=== PATIENT | female | born 1995 | race Caucasian/White ===

== ENCOUNTER 2025-01-04 07:53 | Inpatient (IN) ==
[2025-01-04] MEDS ORDERED: LIDOCAINE 1% LOCAL 20 ML VIAL INFIL PRN (08:40)
[2025-01-04] MEDS ORDERED: OXYTOCIN 30 UNITS/NSS 30 UNITS/500 ML BAG IV PRN (08:40)
[2025-01-04] MEDS: BUTORPHANOL TARTRATE 1 MG/ML VIAL IV ONE (09:14)
[2025-01-04] MEDS: LACTATED RINGER'S 1,000 ML IV PRN (09:17)
[2025-01-04 09:26] LABS: Hematocrit (blood only) 41.3 % (37.0-47.0); Hemoglobin 13.3 g/dl (12.0-16.0); Mean Corpuscular Hemoglobin 26.4 pg (25.0-34.0); Mean Corpuscular Volume 82.1 fL (80.0-100.0); Platelet Count 206 K/uL (130-400); RDW Standard Deviation 55.4 fL (36.4-46.3); Red Blood Count 5.03 M/uL (4.20-5.40); White Blood Count 10.63 K/ul (4.8-10.8)
[2025-01-04] MEDS ORDERED: BUPIVACAINE 0.25% PF 30 ML VIAL EPI PRN (12:43)
[2025-01-04] MEDS ORDERED: NALOXONE HCL 1 MG in SODIUM CHLORIDE 0.9% 1,000 ML IV PRN ×2 (12:43→15:47)
[2025-01-04] MEDS ORDERED: ONDANSETRON INJ 2 MG/ML 2 ML VIAL IV PRN ×2 (12:43→15:47)
[2025-01-04] MEDS ORDERED: SODIUM CHLORIDE 0.9% PF INJ 10 ML VIAL EPI PRN (12:43)
[2025-01-04] MEDS ORDERED: LIDOCAINE 2% MPF LOCAL 5 ML VIAL EPI PRN (12:43)
[2025-01-04] MEDS ORDERED: fentANYL 2 MCG/ML BUPIVacaine 0.125%-NSS 100ML BAG EPI PRN (12:43)
[2025-01-04] MEDS ORDERED: NALBUPHINE HCL INJ 10 MG/ML AMP IV PRN ×2 (12:43→15:47)
[2025-01-04] MEDS ORDERED: NALOXONE HCL 0.4 MG/1 ML VIAL/CARP IV PRN ×2 (12:43→15:47)
[2025-01-04] MEDS ORDERED: diphenhydrAMINE 50 MG/ML VIAL IV PRN ×2 (12:43→15:47)
[2025-01-04] MEDS ORDERED: ROPIVACAINE 0.5% PF 5 MG/ML 20 ML VIAL EPI PRN (12:43)
--- NOTE | 2025-01-04 12:43 | Anesthesiology Consultation ---
Date of Service January 04, 2025 Assessment & Plan ASA ASA2 Proposed Anesthesia Anesthesia Type: Labor Epidural Risk / Benefits Reviewed With: PT / POA / Parent / Guardian, Accepts Plan and Informed Consent Obtained History Surgery Operation Date: 01/04/25 16:00 Proposed Procedures p Section in LD(Bilateral) - Rajesh Vargas MD Height/Weight Height: 5 ft 2 in Weight: 71.668 kg Allergies Allergy/AdvReac Type Severity Reaction Status Date / Time amoxicillin Allergy Intermediate hives Verified 12/17/24 22:20 erythromycin base Allergy Intermediate hives Verified 12/17/24 22:20 pineapple Allergy Mild throat Verified 12/17/24 22:20 gets itchy Medications Home Medications Medication Instructions Recorded Confirmed Last Taken vit no.95-ferrous 1 tab PO DAILY 12/02/24 01/04/25 12/29/24 fumarate 28 mg-folic acid 800 mcg tablet () Active Medications Generic Name Dose Route Start Last Admin Trade Name Freq PRN Reason Stop Dose Admin Lactated Ringer's 1,000 mls @ 125 mls/hr 01/04/25 08:40 01/04/25 15:01 Lr IV 01/06/25 08:39 100 mls/hr .Q8H PRN Administration L&D Protocol Protocol Exercise / Class Metabolic Activity II 4-5 Yardwork/Stairs/Walk up hill Past Anesthesia History No Hx of Anesthesia Complications and No Family Hx of Anesthesia Complications History of PONV No Hx of PONV and No Hx of Motion Sickness Social History Smoking Status: Never smoker Do You Dip or Chew Tobacco: No Hx Alcohol Use: No Hx Substance Use: No substance use type: does not use Review of Systems denies fever/cough/ colds/ chest pain/ SOB/ MARC denies MARC Physical Exam Vital Signs Last Vital Signs Temp 36.7 C 01/04/25 14:07 Pulse 131 H 01/04/25 15:29 Resp 20 01/04/25 14:07 BP 116/70 01/04/25 15:24 Pulse Ox 99 01/04/25 15:29 ENMT Mouth: no TMJ abnormality and no dentition abnormality Thyromental Distance: > or= 3.5 Finger Breadths Mallampati Class: II Neck neck extension not limited Respiratory normal respiratory effort; no respiratory distress Auscultation: lungs clear to auscultation bilaterally Cardiovascular Rate/Rhythm: regular rate and regular rhythm Neurologic moves all extremities Psychiatric Orientation: alert and oriented x 3 Testing Laboratory Results 01/04/25 08:58
[2025-01-04] MEDS: fentANYL 2 MCG/ML BUPIVacaine 0.125%-NSS 100ML BAG ONE (13:30)
[2025-01-04] MEDS: BUPIVACAINE 0.25% PF 30 ML VIAL ONE (13:35)
[2025-01-04] MEDS: LIDOCAINE 2%/EPINEPHRINE 1:200,000 20 ML PF ONE (13:35)
[2025-01-04] MEDS ORDERED: LIDOCAINE 2%/EPINEPHRINE 1:200,000 20 ML PF ONE (15:19)
[2025-01-04] MEDS: CITRIC ACID/SODIUM CITRATE 15 ML UDC ONE (15:25)
--- NOTE | 2025-01-04 15:31 | History & Physical Report ---
Date of Service January 04, 2025 Assessment & Plan (1) Non-reassuring heart rate or rhythm affecting management of mother: Admission and Anticipated Discharge Date Admission Date: January 04, 2025 History of Present Illness Chief Complaint: Nonreassuring heart rate tracing Intrauterine 38 weeks 6 days Primary Care Provider: Daniela Reddy MD Patient is a 29-year-old 2 para 1 she was admitted in active labor with a bloody show and 3 to 4 cm dilated cervix 100% effaced posterior vertex presentation. She has had an uneventful course. Her due date 01/12/2025. She is on no chronic pills or medications other than vitamins. She has been treated for anemia. Her last hemoglobin however was 13. Previous delivery 2019 a male 6 pounds 2 ounces spontaneous vaginal delivery at 35 weeks 5 days gestation after premature rupture membranes. Labor was 24 hours she pushed for 2 to 3 hours. was delivered in good shape. Present or labor started at 4 AM in the morning. She was admitted at about 8. Given a dose of Stadol she walked for a while. She then was given epidural anesthesia at about 4 to 5 cm with her membranes intact. Anesthesia she began to have some bradycardia late decelerations with loss of variability. We tried changing the position. We tried giving her IV fluids. We made sure her blood pressure was normal. Her tracing did improve some. But she had recurrent late long episodes of loss of variability. was called due to nonreassuring heart rate tracing. Allergies Allergy/AdvReac Type Severity Reaction Status Date / Time amoxicillin Allergy Intermediate hives Verified 12/17/24 22:20 erythromycin base Allergy Intermediate hives Verified 12/17/24 22:20 pineapple Allergy Mild throat Verified 12/17/24 22:20 gets itchy Home Medications Medication Instructions Recorded Confirmed Type vit no.95-ferrous 1 tab PO DAILY 12/02/24 01/04/25 History fumarate 28 mg-folic acid 800 mcg tablet () Past Med/Surg History Problem List (Updated 01/04/25 @ 15:22 by Rajesh Vargas MD) Non-reassuring heart rate or rhythm affecting management of mother Uterine contractions during Bilateral lower extremity edema Vasovagal near syncope NST (non-stress test) reactive on surveillance Chronic back pain (Chronic) Right lower quadrant pain (Acute) Social History Smoking Status: Never smoker Do You Dip or Chew Tobacco: No; Hx Alcohol Use: No Hx Substance Use: No Preferred Language: Syriac Communication Ability: Effective Order Filler Required: No Beliefs That Will Affect Care: None marital status: Current Living Situation: Family Current Living Situation Comment: 6 year old son Other Information That Helps Us Care for You: No Feels Safe at Home: Yes Safety Concerns: Feels Safe At This Time Assistive Devices: Contacts and Glasses Physical Exam Physical Exam: Well-developed well-nourished 29-year-old white female alert oriented x 3 cooperative in no no acute distress. The patient had oxygen running at the time of the exam. Heart had regular rhythm S1 and S2 were normal. Lungs are clear to auscultation percussion. Trachea was midline there was no cervical adenopathy. Abdomen is consistent with a term size fetus. No abnormal abdominal tenderness. No CVA tenderness. No calf tenderness. Pelvic exam revealed a vertex -2 station membranes intact 4 to 5 cm 90% effaced mid position Results & Data Results & Data Vital Signs (Past 12 Hours) Vital Signs Temp Pulse Resp BP Pulse Ox 01/04/25 15:14 136 H 100 01/04/25 15:13 123 H 116/66 01/04/25 15:09 97 H 100 01/04/25 15:04 111 H 100 01/04/25 14:59 104 H 100 01/04/25 14:54 118 H 100 01/04/25 14:49 100 01/04/25 14:49 113 H 01/04/25 14:49 92 H 106/59 L 01/04/25 14:44 84 100 01/04/25 14:39 119 H 100 01/04/25 14:34 93 H 181/138 H 100 01/04/25 14:33 108 H 79 L 01/04/25 14:29 101 H 98 01/04/25 14:24 73 100 01/04/25 14:19 111 H 100 01/04/25 14:14 72 99 01/04/25 14:10 50 L 106/51 L 01/04/25 14:09 51 L 100 01/04/25 14:07 20 01/04/25 14:07 36.7 C 20 01/04/25 14:04 92 H 100 01/04/25 14:02 82 106/60 01/04/25 13:59 88 97 01/04/25 13:57 103 H 83 L 01/04/25 13:54 97 H 96/61 L 92 01/04/25 13:53 253/151 H 01/04/25 13:50 109 H 82 L 01/04/25 13:49 70 99 01/04/25 13:45 151 H 171/117 H 01/04/25 13:44 98 H 100 01/04/25 13:39 109 H 96 01/04/25 13:36 99/62 L 01/04/25 13:34 111 H 97/54 L 99 01/04/25 13:33 110 H 95/59 L 01/04/25 13:30 88 114/62 01/04/25 13:29 78 100 01/04/25 13:28 87 119/63 01/04/25 13:26 90 106/72 01/04/25 13:24 79 114/75 95 01/04/25 13:23 75 116/74 01/04/25 13:19 79 99 01/04/25 13:14 72 100 01/04/25 13:09 86 100 01/04/25 13:04 90 100 01/04/25 08:25 68 116/83 01/04/25 08:20 36.9 C 18 Diagnostic Findings Nonreassuring heart rate tracing
[2025-01-04] MEDS ORDERED: cefOXitin SOD 1,000 MG VIAL ONE (15:34)
[2025-01-04] MEDS: cefOXitin 2,000 MG in DEXTROSE 5 % MINI-B 50 ML IV STA (15:35)
[2025-01-04] MEDS ORDERED: DEXAMETHASONE SOD INJ 4 MG/ML VIAL ONE (15:39)
[2025-01-04] MEDS ORDERED: OXYTOCIN 10 UNITS/ML VIAL ONE ×2 (15:39→15:42)
[2025-01-04] MEDS ORDERED: ONDANSETRON INJ 2 MG/ML 2 ML VIAL ONE (15:39)
[2025-01-04] MEDS ORDERED: LACTATED RINGER'S 500 ML IV PRN (15:47)
[2025-01-04] MEDS ORDERED: HYDROmorphone INJ 0.5 MG/0.5 ML SYR IV PRN (15:47)
[2025-01-04] MEDS ORDERED: MoRPHine SULFATE 2 MG/ML CARP IV PRN (15:47)
[2025-01-04] MEDS ORDERED: MoRPHine SULFATE PF 1 MG/ML 10 ML AMP/VIAL INT SPINAL ONE (15:47)
[2025-01-04] MEDS ORDERED: NALOXONE HCL 0.08 MG in SYRINGE 1.8 ML IV PRN (15:47)
[2025-01-04] MEDS ORDERED: PROMETHAZINE 6.25 MG/50.25 ML BAG IV PRN (15:47)
[2025-01-04] MEDS ORDERED: MoRPHine SULFATE PF 1 MG/ML 10 ML AMP/VIAL ONE (15:54)
[2025-01-04] MEDS ORDERED: PHENYLEPHRINE 100MCG/ML 5ML SYR ONE (15:58)
[2025-01-04] MEDS ORDERED: NO NARCOTICS OR SEDATIVES SCH (16:00)
[2025-01-04] MEDS ORDERED: DC INTRASPINAL MORPHINE SCH (16:00)
[2025-01-04] MEDS ORDERED: SODIUM CHLORIDE 0.9% 1,000 ML IV SCH (16:00)
[2025-01-04] MEDS ORDERED: OXYTOCIN 10 UNITS/ML 10ML VIAL IM ONE (16:12)
[2025-01-04 16:16] LABS: Base Excess Cord Arterial Bld -7.4 mEq/L (-9-1.8); CO2 Cord Arterial Blood 60 mmHg (39.1-73.5); HCO3 Cord Arterial Blood 22 mmol/L (19.7-28.5); Oxygen Sat Cord Arterial Blood < 60.0 % (<60); PO2 Cord Arterial Blood < 20 mmHg (4.1-31.7); pH Cord Arterial Blood 7.17 (7.1-7.38)
[2025-01-04 16:18] LABS: Base Excess Cord Venous Blood -5.5 mEq/L (-7.7-1.9); Cord Venous Blood PO2 < 20 mmHg (14.1-43.3); O2 Saturation Cord Venous Bld < 60.0 % (<68)
[2025-01-04] MEDS ORDERED: DIPHTHER/TETAN/PERTUS Vaccine (Tdap, Adol/Adult) 0.5mL IM ONE (16:39)
[2025-01-04] MEDS ORDERED: BENZOCAINE 20% SPRY 85 APPLN/85 GM CAN EXT PRN (16:39)
[2025-01-04] MEDS ORDERED: SENNA 8.6 MG TAB PO PRN (16:39)
[2025-01-04] MEDS ORDERED: CALCIUM CARBONATE 500 MG CHEWABLE TAB PO PRN (16:39)
[2025-01-04] MEDS ORDERED: MAGNESIUM HYDROXIDE SUSP 30 ML UDC PO PRN (16:39)
[2025-01-04] MEDS ORDERED: HYDROCORTISONE ACETATE 25 MG SUPP PR PRN (16:39)
--- NOTE | 2025-01-04 16:43 | Post Operative Brief Note ---
Immediate Post Op Note Date of Surgery January 04, 2025 Pre & Post Diagnosis Operation Date: 01/04/25 16:00 Pre-Op Diagnosis: Nonreassuring FHR tracing Post-Op Diagnosis: Same;delivery of a live male child at 1551 I identified the patient and participated in the time-out.: Yes Procedure Operation Date: 01/04/25 16:00 Actual Procedures p Section in LD(Bilateral) - Rajesh Vargas MD Surgeon Rajesh Vargas MD Uniform Room Attendant pediatric assistant Estimated Blood Loss 600 (QBL) Findings Consistent with Post-Op Diagnosis Direct occiput posterior position Drains Yoder Catheter Complications None
[2025-01-04] MEDS ORDERED: LACTATED RINGER'S 1,000 ML IV SCH (16:45)
--- NOTE | 2025-01-04 16:48 | Operative Report ---
Post Operative Report Pre & Post Diagnosis Operation Date: 01/04/25 16:00 Pre-Op Diagnosis: Nonreassuring FHR tracing Post-Op Diagnosis: Same;delivery of a live male child at 1551 I identified the patient and participated in the time-out.: Yes Procedure Operation Date: 01/04/25 16:00 Actual Procedures p Section in LD(Bilateral) - Rajesh Vargas MD Surgeon Rajesh Vargas MD Belt [employer] Link Shop Supervisor social science research assistant Estimated Blood Loss 600 (QBL) Findings Consistent with Post-Op Diagnosis Direct occiput posterior position of the . Specimens Placenta Drains None Indications Intrauterine 38 weeks 6 days gestation. Nonreassuring heart rate tracing. Description of Procedure Patient was brought to the OR table correctly identified by armband conversation. Yoder catheter had been inserted into the bladder connected to gravity drainage. Compression stockings had been applied. Epidural anesthesia was topped off. Lower abdomen was painted with an alcohol-based sterilizing solution. Patient was draped in usual sterile fashion. Adequacy of the anesthesia was tested and found to be good. Timeout was taken. A low Pfannenstiel incision was made and carried down to the anterior fascia by sharp dissection. Hemostasis was secured by electrocauterization. Fascia was incised transversely from the underlying muscle by blunt and sharp dissection. Recti muscles were in the midline. Peritoneum was carefully raised and entered. retractor was inserted into the incision. Lower uterine segment was exposed. An incision was made above the vesicouterine fold. The bladder was undermined bluntly pushed out the lower uterine segment. Lower uterine segment was scored with a knife and then entered bluntly with the fingers. Amniotic fluid was seen coming through the incision. A vectors retractor was inserted into the incision and applied to the 's head. The infant was in a direct occiput posterior position. With fundal pressure the infant was delivered. Cord was stripped then cut. And infant was handed out to the bench assembler operator who was present scrubbed the time of delivery. Cord gases were sent for. Cord blood was taken. Placenta was removed without difficulty. Uterus tubes and ovaries were brought out through the incision. Uterine cavity was again cleansed with a clean sponge. Ring forceps were used to grab the lower uterine segment. Ring forceps at each angle. And 1 in the middle. The musculature layer was approximated with continuous interlocking suture of heavy chromic catgut. There was some bleeding on the left side. And a horizontal suture was placed below the uterine defect and above the uterine defect to control the bleeding on that side. Fascia layer was approximated over this with a continuous suture of heavy Vicryl. An interrupted [id number] suture of heavy Vicryl was used on the left side to complete hemostasis. 1 incision was hemostatically sound. The vesicouterine fold was then approximated with a continuous interlocking suture of 3-0 chromic catgut. Hemostasis was excellent. Pelvis was cleansed of all blood clots and debris. Uterus tubes and ovaries were normal. Uterus tubes and ovaries were reinserted into the abdominal cavity. The retractor was removed. Peritoneum was closed with continuous interlocking suture of chromic. Muscle was approximated with a continuous interlocking suture of chromic. Then the Vicryl was approximated with continuous interlocking suture of heavy Vicryl and on each end and then tied in the middle. Subcu was washed with normal saline. Subcutaneous tissue was approximated with running plain suture. Skin edges were approximated with staple clips. Quantitative blood loss was 600 mL. Patient Toller procedure well. I attest to the content of the Intraoperative Record and any orders documented therein. Any exceptions are noted below.
[2025-01-04] MEDS: LIDOCAINE 2%/EPINEPHRINE 1:200,000 20 ML PF EPI STA (17:02)
[2025-01-04] MEDS: SODIUM CHLORIDE 0.9% PF INJ 10 ML VIAL EPI STA (17:02)
[2025-01-04] MEDS: BUPIVACAINE 0.25% PF 30 ML VIAL EPI STA (17:02)
[2025-01-04] MEDS: SODIUM CHLORIDE 0.9% PF INJ 10 ML VIAL ONE (17:02)
[2025-01-04] MEDS: KETOROLAC 30 MG/ML VIAL IV SCH (17:03)
[2025-01-04] MEDS: SIMETHICONE 80 MG CHEW PO SCH (17:04)
--- NOTE | 2025-01-04 17:18 | Anesthesia Procedure Note ---
Date of Service January 04, 2025 Anesthesia Post Epidural Note Vital Signs Vital Signs: Temp Pulse Resp BP Pulse Ox 36.7 C 79 20 109/55 L 88 L 01/04/25 14:07 01/04/25 17:17 01/04/25 14:07 01/04/25 17:12 01/04/25 17:17 Notes Mental Status: alert / awake / arousable and participated in evaluation Nausea / Vomiting: adequately controlled Pain: adequately controlled Airway Patency, RR, SpO2: stable & adequate BP & HR: stable & adequate Hydration State: stable & adequate Neuraxial Anesthesia: was administered and sensory block resolved Anesthetic Complications: no major complications apparent and Pt Satisfied with anesthetic care Epidural: Removed without complications and With tip intact
--- NOTE | 2025-01-04 17:18 | Anesthesiology Progress Note ---
Date of Service January 04, 2025 Anesthesia Post Procedure Vital Signs Vital Signs: Temp Pulse Resp BP Pulse Ox 01/04/25 17:17 79 88 L 01/04/25 17:13 78 98 01/04/25 17:12 79 109/55 L 01/04/25 17:08 89 76 L 01/04/25 17:05 98 H 91 01/04/25 17:03 84 88 L 01/04/25 17:02 85/56 L 01/04/25 16:59 82 90 01/04/25 16:58 78 99 01/04/25 16:53 80 92 01/04/25 16:52 79 109/50 L 92 01/04/25 16:49 73 115/52 L 01/04/25 16:48 67 98 01/04/25 16:47 76 85/45 L 01/04/25 16:46 75 89/44 L 01/04/25 16:43 80 99 01/04/25 15:29 131 H 99 01/04/25 15:24 116 H 116/70 100 01/04/25 15:19 114 H 123/58 L 99 01/04/25 15:14 136 H 100 01/04/25 15:13 123 H 116/66 01/04/25 15:09 97 H 100 01/04/25 15:04 111 H 100 01/04/25 14:59 104 H 100 01/04/25 14:54 118 H 100 01/04/25 14:49 100 01/04/25 14:49 113 H 01/04/25 14:49 92 H 106/59 L 01/04/25 14:44 84 100 01/04/25 14:39 119 H 100 01/04/25 14:34 93 H 181/138 H 100 01/04/25 14:33 108 H 79 L 01/04/25 14:29 101 H 98 01/04/25 14:24 73 100 01/04/25 14:19 111 H 100 01/04/25 14:14 72 99 01/04/25 14:10 50 L 106/51 L 01/04/25 14:09 51 L 100 01/04/25 14:07 20 01/04/25 14:07 36.7 C 20 01/04/25 14:04 92 H 100 01/04/25 14:02 82 106/60 01/04/25 13:59 88 97 01/04/25 13:57 103 H 83 L 01/04/25 13:54 97 H 96/61 L 92 01/04/25 13:53 253/151 H 01/04/25 13:50 109 H 82 L 01/04/25 13:49 70 99 01/04/25 13:45 151 H 171/117 H 01/04/25 13:44 98 H 100 01/04/25 13:39 109 H 96 01/04/25 13:36 99/62 L 01/04/25 13:34 111 H 97/54 L 99 01/04/25 13:33 110 H 95/59 L 01/04/25 13:30 88 114/62 01/04/25 13:29 78 100 01/04/25 13:28 87 119/63 01/04/25 13:26 90 106/72 01/04/25 13:24 79 114/75 95 01/04/25 13:23 75 116/74 01/04/25 13:19 79 99 01/04/25 13:14 72 100 01/04/25 13:09 86 100 01/04/25 13:04 90 100 01/04/25 08:25 68 116/83 01/04/25 08:20 36.9 C 18 Transfer of Care Handoff Completed per policy Notes Mental Status: alert / awake / arousable and participated in evaluation Patient Amnestic to Procedure: Yes Nausea / Vomiting: adequately controlled Pain: adequately controlled Airway Patency, RR, SpO2: stable & adequate BP & HR: stable & adequate Hydration State: stable & adequate Anesthetic Complications: no major complications apparent and Pt Satisfied with anesthetic care
[2025-01-04] MEDS: OXYTOCIN 20 UNITS/LR 1,002 ML IV SCH (17:43)
[2025-01-04] MEDS: DOCUSATE SODIUM 100 MG CAP PO SCH (21:40)
[2025-01-04] MEDS: ACETAMINOPHEN 325 MG TAB PO SCH (23:06)
[2025-01-05 07:09] LABS: Hematocrit (blood only) 30.2 % (37.0-47.0); Hemoglobin 10.0 g/dl (12.0-16.0); Immature Granulocytes # (auto) 0.05 K/uL (0.01-0.20); Immature Granulocytes % (auto) 0.4 %; Mean Corpuscular Hemoglobin 27.0 pg (25.0-34.0); Mean Corpuscular Volume 81.4 fL (80.0-100.0); Platelet Count 159 K/uL (130-400); RDW Standard Deviation 54.7 fL (36.4-46.3); Red Blood Count 3.71 M/uL (4.20-5.40); White Blood Count 12.25 K/ul (4.8-10.8)
--- NOTE | 2025-01-05 07:09 | Obstetrical Progress Note ---
Date of Service January 05, 2025 Assessment & Plan Admission and Anticipated Discharge Date Admission Date: January 04, 2025 Subjective abdomen soft and non tender bowel sounds present hypoactive bandage removed incision is clean and dry no calf tenderness ambulating well vaginal bleeding scant hgb 10.0 Results & Data Vital Signs (Past 12 Hours) Vital Signs Temp Pulse Pulse Resp BP BP Pulse Ox 01/05/25 06:01 16 95 01/05/25 04:59 16 96 01/05/25 04:30 36.8 C 61 16 114/68 96 01/05/25 04:01 18 95 01/05/25 03:00 16 96 01/05/25 02:00 16 96 01/05/25 00:59 18 97 01/05/25 00:00 16 96 01/04/25 23:15 37.5 C 72 18 117/71 96 01/04/25 23:01 16 96 01/04/25 22:00 18 96 01/04/25 21:00 16 97 01/04/25 20:50 01/04/25 20:50 36.9 C 58 L 18 123/73 97 01/04/25 19:38 65 97 01/04/25 19:33 60 97 01/04/25 19:28 76 96 01/04/25 19:23 67 96 01/04/25 19:18 77 95 01/04/25 19:14 69 128/62 01/04/25 19:13 78 94 01/04/25 19:08 70 95 O2 Del Method 01/05/25 06:01 01/05/25 04:59 01/05/25 04:30 Room Air 01/05/25 04:01 01/05/25 03:00 01/05/25 02:00 01/05/25 00:59 01/05/25 00:00 01/04/25 23:15 Room Air 01/04/25 23:01 01/04/25 22:00 01/04/25 21:00 01/04/25 20:50 Room Air 01/04/25 20:50 Room Air 01/04/25 19:38 01/04/25 19:33 01/04/25 19:28 01/04/25 19:23 01/04/25 19:18 01/04/25 19:14 01/04/25 19:13 01/04/25 19:08
[2025-01-05] MEDS: FERROUS SULFATE 325 MG TAB PO SCH (08:19)
[2025-01-05] MEDS: PRENATAL VITAMIN 1 TAB PO SCH (08:19)
[2025-01-05] MEDS ORDERED: HYDROmorphone INJ 0.5 MG/0.5 ML SYR IV PRN (09:47)
[2025-01-05] MEDS ORDERED: PROMETHAZINE 12.5 MG/50.5 ML BAG IV PRN (09:47)
[2025-01-05] MEDS ORDERED: ONDANSETRON INJ 2 MG/ML 2 ML VIAL IV PRN (09:48)
[2025-01-05] MEDS ORDERED: diphenhydrAMINE 50 MG/ML VIAL IV PRN (09:48)
[2025-01-05] MEDS ORDERED: diphenhydrAMINE Capsule 25 MG CAP PO PRN (09:48)
[2025-01-05] MEDS ORDERED: ZOLPIDEM TARTRATE 5 MG TAB PO PRN (09:48)
[2025-01-05] MEDS: IBUPROFEN 600 MG TAB PO SCH (16:28)
[2025-01-05] MEDS ORDERED: KETOROLAC 30 MG/ML VIAL IV PRN (16:45)
[2025-01-05 19:56] VITALS: RESP 18
[2025-01-06 06:28] LABS: Hematocrit (blood only) 34.0 % (37.0-47.0); Hemoglobin 10.8 g/dl (12.0-16.0)
--- NOTE | 2025-01-06 07:55 | Obstetrical Progress Note ---
Date of Service January 06, 2025 Assessment & Plan (1) delivery delivered: Post day #2 Vaginal delivery Pt doing well No complaints Stable vitals Stable labs. H/H:10.8 Tolerating PO food and med Pt wishes to be discharged home Subjective Ambulation: ambulating normally Voiding: no voiding problems Passing Gas:: Yes Diet Tolerance:: clear liquids Lochia:: Small Feeding Type:: breast feeding Review of Systems All systems reviewed & are unremarkable except as noted in HPI & below Physical Exam Constitutional WD/WN, vitals as above well developed and well nourished Eyes PERRL, conjunctivae normal, anicteric sclerae ENMT external ear and nose normal, oropharynx normal Neck trachea midline, no thyromegaly Respiratory normal respiratory effort, lungs clear to auscultation Cardiovascular RRR, no murmur, no edema Chest (Breasts) normal inspection/palpation of breasts Gastrointestinal (Abdomen) normal bowel sounds, soft, nontender, no hepatosplenomegaly Musculoskeletal no cyanosis or clubbing, extremities motor strength 5/5 Skin no rashes, warm and dry + incision (Clean,dry and intact) Neurologic patellar DTR's 2+ bilat, sensation intact Psychiatric A+Ox3, euthymic affect Genitourinary normal external appearance Lymphatic no cervical or axillary lymphadenopathy Results & Data Vital Signs (Past 12 Hours) Vital Signs Temp Pulse Resp BP Pulse Ox O2 Del Method 01/06/25 02:00 37.1 C 74 18 112/71 96 Room Air
--- NOTE | 2025-01-06 08:56 | Obstetrical Progress Note ---
Date of Service January 06, 2025 Assessment & Plan Admission and Anticipated Discharge Date Admission Date: January 04, 2025 Subjective abdomen soft and non tender passing gas incision is clean and dry no calf tenderness ambulating well vaginal bleeding scant hgb 10.8 Results & Data Vital Signs (Past 12 Hours) Vital Signs Temp Pulse Resp BP Pulse Ox O2 Del Method 01/06/25 02:00 37.1 C 74 18 112/71 96 Room Air
[2025-01-06 09:00] VITALS: BP 123/85; TEMP 97.7; O2SAT 97
--- NOTE | 2025-01-06 09:04 | Discharge Summary ---
Date of Service January 06, 2025 Admission HPI Per Admitting Provider Patient is a 29-year-old 2 para 1 she was admitted in active labor with a bloody show and 3 to 4 cm dilated cervix 100% effaced posterior vertex presentation. She has had an uneventful course. Her due date 01/12/2025. She is on no chronic pills or medications other than vitamins. She has been treated for anemia. Her last hemoglobin however was 13. Previous delivery 2019 a male 6 pounds 2 ounces spontaneous vaginal delivery at 35 weeks 5 days gestation after premature rupture membranes. Labor was 24 hours she pushed for 2 to 3 hours. was delivered in good shape. Present pregn dmitri or labor started at 4 AM in the morning. She was admitted at about 8. Given a dose of Stadol she walked for a while. She then was given epidural anesthesia at about 4 to 5 cm with her membranes intact. Anesthesia she began to have some bradycardia late decelerations with loss of variability. We tried changing the position. We tried giving her IV fluids. We made sure her blood pressure was normal. Her tracing did improve some. But she had recurrent late long episodes of loss of variability. was called due to nonreassuring heart rate tracing. Discharge Data Consultations 01/04/25 08:40 Consult Anesthesiology Stat Procedures Performed Operation Date: 01/04/25 16:00 Actual Procedures p Section in LD(Bilateral) - Rajesh Vargas MD Hospital Course (1) delivery delivered: Plan Patient underwent primary low segment section for nonreassuring heart rate tracing associated with cephalopelvic disproportion. Infant also weight over 8 pounds. was in direct occiput posterior position at the time of . Her postoperative course was smooth. She remained afebrile. Vaginal bleeding was minimal. Bowel sounds returned within 24 hours. At the time of discharge she was ambulating well. She was eating well and passing gas. Hemoglobin the day of discharge was 10.8. Pain was well-controlled with a combination of nonnarcotic pain relievers and Percocet. Patient was given the usual post delivery and postop instructions. Patient had an appointment on January 13 for removal of alok.
[2025-01-06 09:40] VITALS: PULSE 74
[2025-01-06] MEDS ORDERED: IBUPROFEN 600 MG TAB PO PRN (16:45)
[2025-01-06] MEDS ORDERED: ACETAMINOPHEN 325 MG TAB PO PRN (22:45)
== END 2025-01-06 11:30 | disposition home or self-care (01) | DRG 788 ==
LOC: OPB 07:53 → 4S1 07:55 → 4E2 20:10